=== PATIENT | female | born 2000 | race African-American/Black ===

== ENCOUNTER → 2019-03-18 | Outpatient (REF) | payer OTHER ==
[2019-03-18 21:17] LABS: APPEARANCE, URINE CLOUDY (CLEAR); BACTERIA, URINE AUTO 3+ (NEGATIVE); BILIRUBIN, URINE AUTO NEGATIVE (NEGATIVE); BLOOD, URINE BLOOD NEGATIVE (NEGATIVE); COLOR, URINE YELLOW (YELLOW); GLUCOSE, URINE (UA) AUTO NEGATIVE (NEGATIVE); KETONE, URINE AUTO NEGATIVE (NEGATIVE); LEUKOCYTE ESTERASE, URINE AUTO 2+ (NEGATIVE); MUCUS, URINE MODERATE (NEGATIVE); NITRITE, URINE AUTO POSITIVE (NEGATIVE); PROTEIN, URINE AUTO 1+ mg/dL (NEGATIVE); RBC, URINE AUTO 9 /HPF (0-3); SPECIFIC GRAVITY URINE AUTO 1.028 (1.002-1.035); SQUAMOUS EPITHELIAL CELL UR AU 11 /HPF (0-6); TRANSITIONAL EPITHELIAL AUTO 2 /HPF; UROBILINOGEN, URINE AUTO 0.2 mg/dL (0.0-2.0); WBC, URINE AUTO 88 /HPF (0-3)
== END ==
LOC: M LAB REF 10:28
PROVIDERS: ATTEND Physician Assistant Medical
DX: R30.0 Dysuria (principal)

== ENCOUNTER 2019-07-25 03:29 | Emergency (ER) | payer OTHER ==
[~2019-07-25] VITALS: Ht 157.5 cm; Wt 65.0 kg
[2019-07-25] MEDS ORDERED: PREN1CHW PO (03:37)
[2019-07-25 05:36] LABS: HEMOGLOBIN 10.6 g/dl (12.0-15.5); MEAN CORPUSCULAR HEMOGLOBIN 29.6 pg (27.0-33.0); MEAN CORPUSCULAR HGB CONC 33.1 g/dl (32.0-36.5); MEAN CORPUSCULAR VOLUME 89.4 fl (80.0-96.0); PLATELET COUNT, AUTOMATED 278 10^3/uL (150-450); RED BLOOD COUNT 3.58 10^6/uL (4.00-5.40); WHITE BLOOD COUNT 8.7 10^3/uL (4.0-10.0)
--- NOTE | 2019-07-25 05:36 | REPVR ---
PROCEDURE INFORMATION: Exam: US First Trimester, Transabdominal Exam date and time: 07/25/2019 5:04 AM Age: 18 years old Clinical indication: complicated by abdominal or pelvic pain; Right lower quadrant; Second trimester; Gestational age or lmp: Lmp 04/04/19; ; Additional info: Abd pain. 16 weeks TECHNIQUE: Imaging protocol: Real-time transabdominal obstetrical ultrasound of the maternal pelvis and a first trimester , less than 14 weeks 0 days, with image documentation. COMPARISON: No relevant prior studies available. FINDINGS: GESTATION: Gestation: Single intrauterine fetus. Heart rate: heartbeat of 162 bpm. Presentation: Cephalic presentation. Placenta: Posterior placenta. Amniotic fluid: Amniotic and coelomic fluid are normal for gestational age. Anatomy: The stomach, bladder, cord, visualized extremities, spine and intracranial structures appear normal. BIOMETRY: Estimated gestational age: Estimated age is 15 weeks 3 days. The EDC is 01/13/2020. MATERNAL: Uterus: Unremarkable. Cervix: The cervix is closed measuring 3.4 cm. Right adnexa: The right ovary measures 2.3 x 3.1 x 2.9 cm and demonstrates arterial and venous blood flow. Left adnexa: The left ovary measures 2.7 x 2.8 x 2.4 cm and demonstrates arterial and venous blood flow. Intraperitoneal: No intraperitoneal free fluid. IMPRESSION: 1. Single live intrauterine fetus in cephalic presentation with an estimated age of 15 weeks 3 days. The EDC is 01/13/2020. 2. Otherwise negative pelvic sonogram. Electronically signed by: Mario Castro On 07/25/2019 05:36:22 AM
[2019-07-25 05:51] LABS: BLOOD UREA NITROGEN 10 MG/DL (7-18); CALCIUM LEVEL 9.4 MG/DL (8.5-10.1); CARBON DIOXIDE LEVEL 23 MEQ/L (21-32); CHLORIDE LEVEL 108 MEQ/L (98-107); CREATININE FOR GFR 0.52 MG/DL (0.55-1.30); GLUCOSE, FASTING 70 MG/DL (70-100); POTASSIUM SERUM 3.9 MEQ/L (3.5-5.1); SODIUM LEVEL 138 MEQ/L (136-145)
[2019-07-25 06:18] VITALS: BP 108/58
== END 2019-07-25 06:31 | disposition home or self-care (01) ==
LOC: M ED 03:29
DX: O26.92 Pregnancy related conditions, unspecified, second trimester (principal); R10.2 Pelvic and perineal pain; Z3A.16 16 weeks gestation of pregnancy

== ENCOUNTER 2019-09-20 17:24 | Emergency (ER) | payer OTHER ==
[~2019-09-20] VITALS: Ht 157.5 cm; Wt 71.2 kg
[2019-09-20 17:24] VITALS: BP 114/75
[~2019-09-20 17:24] MED LIST: PREN1CHW PO
== END 2019-09-20 18:24 | disposition home or self-care (01) ==
LOC: M ED 17:24
DX: O99.512 Diseases of the respiratory system complicating pregnancy, second trimester (principal); J70.5 Respiratory conditions due to smoke inhalation; Z3A.24 24 weeks gestation of pregnancy